=== PATIENT | male | born 1955 | race Caucasian/White ===

== ENCOUNTER 2016-09-23 09:39 | Emergency (ER) | payer OTHER ==
[~2016-09-23] VITALS: Ht 175.3 cm; Wt 115.0 kg
[~2016-09-23 09:39] MED LIST: ALBU18HF IH; ASPI-664 PO; ATOR10TA65 PO; BECL8.7A5 INH; BENA20TA48 PO; BRIM5DRO11 BOTH EYES; CAND32TA8 PO; DORZ10DR20 BOTH EYES; ESCI10TA48 PO; GLYB5TAB3 PO; INSU100C SC; LANT3I SC; LATA2.5D9 OP; MONT10TA24 PO; NASO17 NASAL; OLME20TA20 PO; OMEP20CA9 PO
[2016-09-23 09:43] VITALS: Ht 175.3 cm; Wt 115.0 kg
[2016-09-23] MEDS ORDERED: ALBUTEROL 0.5% (NEB) 2.5 MG/0.5 ML AMP HHN STA (10:27)
--- NOTE | 2016-09-23 10:48 | RADRPT ---
PROCEDURE: XR Chest. CLINICAL INDICATION: Cough and shortness of breath. TECHNIQUE: Single frontal view. COMPARISON: 07/13/2014. FINDINGS: There is mild right basilar linear atelectasis. The lungs are otherwise clear. The heart size is normal. There is no pleural effusion. There is no pneumothorax. IMPRESSION: 1. Mild right basilar linear atelectasis. 2. Otherwise normal chest x-ray. RPTAT: QQ .Roberto Schmitz MD, MD Date Time Electronically viewed and signed by .Roberto Schmitz MD, MD on 09/23/2016 10:47 .R/
[2016-09-23] MEDS ORDERED: OSLT75C PO (11:21)
[2016-09-23] MEDS ORDERED: ALBU18HF INHALATION (11:21)
[2016-09-23] MEDS ORDERED: D-ME473S18 PO (11:21)
[2016-09-23] MEDS ORDERED: IBUP-1542 PO (11:21)
[2016-09-23] MEDS ORDERED: AZIT250T94 PO (11:25)
--- NOTE | 2016-09-23 11:28 | ERD ---
ER Documentation Chief Complaint Date/Time DATE: 09/23/16 TIME: 11:26 Chief Complaint B/L EAR ACHE AND COUGH HPI This 7-year-old male presents with coughing and body aches and fever at home as well as bilateral ear pain. He has slight productive mucus. He has history of diabetes and hypertension. ROS All systems reviewed and are negative except as per history of present illness. Medications Home Meds Active Scripts Azithromycin* (Zithromax*) 250 Mg Tablet, 250 MG PO .MagdiPACK DIRECTED, #6 TAB TAKE 500 MG (2 TABS) THE FIRST DAY THEN 250 MG (1 TAB) DAYS 2-5 Prov:MEG LIMA MD 09/23/16 Oseltamivir Phosphate* (Tamiflu*) 75 Mg Capsule, 75 MG PO BID for 5 Days, CAP Prov:MEG LIMA MD 09/23/16 Albuterol Sulfate* (Ventolin HFA*) 18 Gm Hfa.aer.ad, 2 PUFF INHALATION Q4H, #1 INHALER Prov:MEG LIMA MD 09/23/16 Ibuprofen* (Motrin*) 600 Mg Tab, 600 MG PO Q6, #15 TAB Prov:MEG LIMA MD 09/23/16 Reported Medications Dorzolamide Hcl* (Trusopt*) 5 Ml Drops, 1 DROP BOTH EYES TID, EA 06/21/14 Brimonidine Tartrate* (Alphagan P*) 0.15%-10 Ml Opht Drops, 1 DROP BOTH EYES Q8 , EA 06/21/14 Latanoprost (Xalatan) 2.5 Ml Drops, 2.5 ML OP BID 06/21/14 Aspirin* (Aspirin* EC) 81 Mg Tablet.dr, 81 MG PO DAILY, TAB 06/21/14 Glyburide* (Glyburide*) 5 Mg Tablet, 5 MG PO BID, TAB 06/21/14 Candesartan Cilexetil (Candesartan Cilexetil) 32 Mg Tablet, 32 MG PO DAILY, TAB 06/21/14 Olmesartan Medoxomil (Benicar) 20 Mg Tablet, 20 MG PO DAILY, TAB 06/21/14 Omeprazole* (Prilosec*) 20 Mg Capsule.dr, 20 MG PO DAILY, CAP 06/21/14 Albuterol Sulfate* (Ventolin HFA*) 18 Gm Hfa.aer.ad, 2 PUFF IH Q4H Y for WHEEZING AND RESP DISTRESS, EA 06/21/14 Atorvastatin Calcium (Atorvastatin Calcium) 10 Mg Tab, 10 MG PO HS, TAB 06/21/14 Insulin Lispro (Humalog) 100 U/Ml Cartridge, 25 UNITS SC WITH DINNER, EA 06/21/14 Insulin Lispro (Humalog) 100 U/Ml Cartridge, 25 UNITS SC WITH BREAKFAST, EA 06/21/14 Mometasone Furoate* (Nasonex*) 50 Mcg/[place] - 17 Gm [place].pump, 1 SPRAY NASAL BID, EA 06/21/14 Escitalopram Oxalate* (Escitalopram Oxalate*) 10 Mg Tablet, 10 MG PO DAILY, TAB 06/21/14 Beclomethasone Dip* (Qvar 80*) 7.3 Gm Inha, 2 PUFF INH BID, INH 06/21/14 Montelukast Sodium* (Montelukast Sodium*) 10 Mg Tablet, 10 MG PO HS, TAB 06/21/14 Benazepril Hcl* (Benazepril Hcl*) 20 Mg Tablet, 20 MG PO DAILY, TAB 06/21/14 Insulin Glargine* (Lantus*) 100 Unit/Ml Soln, 100 UNIT SC PM, EA 06/21/14 Insulin Glargine* (Lantus*) 100 Unit/Ml Soln, 100 UNIT SC AM, EA 06/21/14 Allergies Allergies: Coded Allergies: morphine (Verified Allergy, Unknown, 07/13/14) PMhx/Soc History of Surgery: No Anesthesia Reaction: No Hx Neurological Disorder: No Hx Respiratory Disorders: Yes (ASTHMA) Hx Cardiac Disorders: No Hx Psychiatric Problems: No Hx Miscellaneous Medical Probl: Yes (DM) Hx Alcohol Use: No Hx Substance Use: No Hx Tobacco Use: Yes Smoking Status: Former smoker Physical Exam Vitals Vital Signs Date Time Temp Pulse Resp B/P Pulse Ox O2 Delivery O2 Flow Rate FiO2 09/23/16 10:52 82 19 97 21 09/23/16 09:43 99.2 78 18 178/86 98 Physical Exam Const: [] Alert, [id number] . Morbidly obese per Head: Atraumatic Eyes: Normal Conjunctiva ENT: Normal External Ears, Nose and Mouth. Left TM is red and bulging. Right TM appears with decreased light reflex but clear. Neck: Full range of motion..~ No meningismus. Resp: Clear to auscultation bilaterally. Slight forced wheeze without rales or retractions. Cardio: Regular rate and rhythm, no murmurs Abd: Soft, non tender, non distended. Normal bowel sounds Skin: No petechiae or rashes Back: No midline or flank tenderness Ext: No cyanosis, or edema Neur: Awake and alert Psych: Normal Mood and Affect Results 24 hrs Laboratory Tests Test 09/23/16 10:48 Bedside Glucose 270mg/dL Current Medications Medications (Trade) Dose Ordered Sig/Javon Route PRN Reason Start Time Stop Time Status Last Admin Dose Admin Albuterol (Proventil 0.5% (Neb)) 2.5 mg ONCE STAT HHN 09/23/16 10:27 09/23/16 10:29 DC 09/23/16 10:51 Procedures/MDM Chest X-ray 1V Interpreted by me: Soft Tissue: No acute abnormalities Bones: No acute abnormalities Mediastinum/Cardiac Silhouette/Lungs: [No acute abnormalities]. Impression- normal 1 view chest x-ray Patient was given albuterol treatment 1. Patient presents with URI symptoms, fever at home and signs of otitis media. There is no evidence of pneumonia, respiratory distress, hypoxemia. There is no evidence to suggest ketoacidosis. Blood sugar is 280. He may have a nely illness or possibly influenza. Given his high risk status he will be treated with Tamiflu, Zithromax for otitis media and ibuprofen. Given refills of Ventolin as well. The patient was stable with no new complaints during the ER course. Clinically, there is no current evidence to suggest meningitis, sepsis, acute abdomen, pneumonia, acute coronary syndrome, pulmonary embolism, or any other emergent condition appearing to require further evaluation or hospitalization. The patient should certainly return for any new or worsening symptoms per the aftercare instructions. They should otherwise follow-up with her primary care doctor for reevaluation this week. Departure Diagnosis: Primary Impression: Hypertension Hypertension type: essential hypertension Qualified Code: I10 - Essential hypertension Additional Impressions: Otitis media Otitis media type: suppurative Laterality: right Chronicity: acute Recurrence: not specified as recurrent Spontaneous tympanic membrane rupture: without spontaneous rupture Qualified Code: H66.001 - Acute suppurative otitis media of right ear without spontaneous rupture of tympanic membrane, recurrence not specified URI, acute Condition: Stable Patient Instructions: High Blood Pressure (Hypertension), Bronchitis With Wheezing (Adult), Otitis Media, Abx Tx (Adult) Additional Instructions: X-ray normal. Cheque otro vez con chiu doctor primario en el proximo allan or regresa para mas o nueva simptomas. MEG LIMA MD Sep 23, 2016 11:28
== END 2016-09-23 11:57 | disposition home or self-care (01) ==
LOC: FTE 09:39
DX: I10 Essential (primary) hypertension (principal); H66.001 Acute suppurative otitis media without spontaneous rupture of ear drum, right ear; J06.9 Acute upper respiratory infection, unspecified; J45.909 Unspecified asthma, uncomplicated; E11.9 Type 2 diabetes mellitus without complications; Z79.4 Long term (current) use of insulin; Z79.82 Long term (current) use of aspirin; Z79.84 Long term (current) use of oral hypoglycemic drugs; Z87.891 Personal history of nicotine dependence
CPT/HCPCS: 71010; 82962; 94664; Z7502; Z7610

== ENCOUNTER 2017-10-31 11:02 | Emergency (ER) | END 2017-10-31 13:41 | disposition home or self-care (01) ==